=== PATIENT | female | born 1975 | race Caucasian/White ===

== ENCOUNTER → 2018-07-22 | Outpatient (CLI) | payer OTHER ==
--- NOTE | 2018-07-22 10:03 | US ---
EXAMINATION TYPE: US pelvis complete transvag DATE OF EXAM: 07/22/2018 COMPARISON: NONE CLINICAL HISTORY: R10.2 Pelvic and perineal pain, N92.3 Ovulation. Patient bleeding and spotting 4 days a week TECHNIQUE: Transvaginal (TV) and Transabdominal (TA) . Transabdominal sonographic images of the pel vis were acquired. Transvaginal sonographic images were medically necessary to better assess the fol lowing anatomy: endometrium Date of LMP: Patient bleeding and spotting 4 days a week EXAM MEASUREMENTS: Uterus: 9.0 x 4.0 x 4.8cm Endometrial Stripe: 0.4 cm Right Ovary: 2.2 x 1.8 x 1.8 cm Left Ovary: 2.2 x 2.0 x 2.1 cm 1. Uterus: Anteverted, heterogeneous, fibroid measuring 1.6 x 1.2 x 1.7cm 2. Endometrium: anechoic area with some internal echoes low measuring 1.4 x 0.8 x 0.8cm, 3. Right Ovary: wnl 4. Left Ovary: dominant follicle noted Spectral, color and waveform doppler imaging shows good arterial and venous flow within the ovaries ; there is no evidence for ovarian torsion. 5. Bilateral Adnexa: wnl 6. Posterior cul-de-sac: wnl IMPRESSION: 1. Uterine tissue is heterogeneous with a 1.7 cm hypoechoic nodule most typical of a fibroid. This ap pears slightly increased in size from the prior exam where it measured 1.4 cm.
== END | disposition home or self-care (01) ==
LOC: RADUSWWP 08:42
PROVIDERS: ATTEND Obstetrics & Gynecology
DX: N85.8 Other specified noninflammatory disorders of uterus (principal)
CPT/HCPCS: 76830; 76856

== ENCOUNTER → 2018-08-29 | Outpatient (CLI) | payer OTHER | END | disposition home or self-care (01) | LOC: LABWHC1 11:25 | PROVIDERS: ATTEND Obstetrics & Gynecology | DX: N92.1 Excessive and frequent menstruation with irregular cycle (principal); Z13.29 Encounter for screening for other suspected endocrine disorder | CPT/HCPCS: 36415; 82670; 83001; 83002; 84439; 84443 ==

== ENCOUNTER 2018-12-01 06:20 | Emergency (ER) | payer OTHER ==
[2018-12-01 06:27] VITALS: TEMP 98.1
[2018-12-01] MEDS ORDERED: SODIUM CHLORIDE 0.9% 500 ML 500 ML IV ONE (06:46)
[2018-12-01] MEDS ORDERED: diphenhydrAMINE 50 MG/ML 1 ML VIAL IVP STA (06:47)
[2018-12-01] MEDS ORDERED: methylPREDNISolone SOD SUCCI 125 MG/2 ML VIAL IV STA (06:47)
[2018-12-01] MEDS ORDERED: FAMOTIDINE 20 MG/2 ML VIAL IV STA (08:08)
--- NOTE | 2018-12-01 09:05 | ED ---
Allergic Reaction HPI - General Chief complaint: Allergic Reaction Stated complaint: hives Time Seen by Provider: 12/01/18 06:44 Source: patient, family Mode of arrival: ambulatory Limitations: no limitations - History of Present Illness Initial Comments: 43-year-old female presents emergency department for evaluation of rash x 1 day. Patient states she believes she has hives. Patient states yesterday approximately 2 PM she felt a slight itchy sensation on her left leg. Patient states that it began to spread throughout the day and by 8 PM it was from head to toe. Patient states she does take Lamictal has been on the prescription for 2 years. Patient denies taking any other medications-when necessary Xanax. Patient denies any specific foods that could've caused the rash but states that she did eat [place] fries at the fair about hour prior to the onset. Patient denies any swelling of the lip, tongue, the breathing abdominal pain and vomi ting nausea diarrhea fever and sick contacts recent travel. Patient states the rash is itchy she denies any pain blistering. Remaining review of system negative. Upon arrival patient appears well no signs of acute distress. 25mg of bendaryl was taking an hour prior to arrival. - Related Data Home Medications Medication Instructions Recorded Confirmed ALPRAZolam [Xanax XR] 1 mg PO DAILY PRN 12/01/18 12/01/18 Cholecalciferol [Vitamin D3 (25 1,000 unit PO DAILY 12/01/18 12/01/18 Mcg = 1000 Iu)] Ibuprofen [Motrin] 800 mg PO Q6HR PRN 12/01/18 12/01/18 lamoTRIgine [LaMICtal] 100 mg PO HS 12/01/18 12/01/18 Previous Rx's Medication Instructions Recorded hydrOXYzine HCL [Atarax] 10 mg PO TID PRN 5 Days #15 tab 12/01/18 predniSONE 20 mg PO BID 4 Days #8 tab 12/01/18 Allergies Allergy/AdvReac Type Severity Reaction Status Date / Time acetaminophen [From Vicodin] Allergy Rash/Hives Verified 12/01/18 08:07 codeine Allergy Rash/Hives Verified 12/01/18 08:07 hydrocodone [From Vicodin] Allergy Rash/Hives Verified 12/01/18 08:07 morphine Allergy Rash/Hives Verified 12/01/18 08:07 sulfamethoxazole Allergy Rash/Hives Verified 12/01/18 08:07 [From Bactrim] trimethoprim [From Bactrim] Allergy Rash/Hives Verified 12/01/18 08:07 Review of Systems ROS Statement: Those systems with pertinent positive or pertinent negative responses have been documented in the HPI. ROS Other: All systems not noted in ROS Statement are negative. Past Medical History Past Medical History: GERD/Reflux Additional Past Medical History / Comment(s): Hyperthyroidism after first . States resolved after some time and no further problems. States " I think that I am allergic to almost all kinds of pain medicine". History of Any Multi-Drug Resistant Organisms: None Reported Past Surgical History: Section, Cholecystectomy, Orthopedic Surgery, Tubal Ligation Additional Past Surgical History / Comment(s): Scope R shoulder, colonoscopy, ear tubes. Past Anesthesia/Blood Transfusion Reactions: Motion Sickness Past Psychological History: Anxiety, Depression Smoking Status: Never smoker Past Alcohol Use History: None Reported Past Drug Use History: None Reported - Past Family History Mother Family Medical History: No Reported History General Exam - General Exam Comments Initial Comments: General: The patient is awake and alert, in no distress, and does not appear acutely ill. Eye: Pupils are equal, round and reactive to light, extra-ocular movements are intact. No nystagmus. There is normal conjunctiva bilaterally. No signs of icterus. Ears, nose, mouth and throat: There are moist mucous membranes and no oral lesions. Neck: The neck is supple, there is no tenderness or JVD. Cardiovascular: There is a regular rate and rhythm. No murmur, rub or gallop is appreciated. Respiratory: Lungs are clear to auscultation, respirations are non-labored, breath sounds are equal. No wheezes, stridor, rales, or rhonchi. Gastrointestinal: Soft, non-distended, non-tender abdomen without masses or organomegaly noted. There is no rebound or guarding present. Musculoskeletal: Slightly raised red circular, some confluent lesions on hairline, neck, back, abdomen, leg b/l, small amount of arms. No vesicular lesions no blistering. Normal ROM, no tenderness. Strength 5/5. Sensation intact. Radial pulses equal bilaterally 2+. Neurological: A&O x 3. CN II-XII intact grossly, There are no obvious motor or sensory deficits. Coordination appears grossly intact. Speech is normal. Skin: Skin is warm and dry and no rashes or lesions are noted. Psychiatric: Cooperative, appropriate mood & affect, normal judgment. Limitations: no limitations Course Vital Signs 12/01/18 12/01/18 06:22 09:55 Temperature 98.1 F Pulse Rate 104 H 80 Respiratory 20 16 Rate Blood Pressure 127/63 120/71 O2 Sat by Pulse 100 100 Oximetry Medical Decision Making - Medical Decision Making 43-year-old female presenting for possible hives. Patient is on Lamictal has been for the past 2 years. Patient does have urticaria on examination. With concern of frequency of adverse reactions associated with Lamictal patient is instructed to discontinue meidcation, it this is currently treating her bipolar disorder and has not used for epilepsy. Patient was given solumedrol 125IVP, Pepcid and 25 mg of Benadryl emergency department. Patient has resolution of itching however the urticaria remains. I discussed the case attending provider Dr. Grimes at this time we do feel patient is stable for discharge as she has not worsened emergency department, with a prescription for Atarax and prednisone. She is to consult her psychiatrist in regards to her medications. She was given very strict return parameters which she verbalizes understanding. Patient is discharged appearing well Disposition Clinical Impression: Urticaria Disposition: HOME SELF-CARE Condition: Good Instructions (If sedation given, give patient instructions): Anaphylaxis (ED), Adverse Drug Reaction (ED) Additional Instructions: Please use medication as discussed. STOP LAMICTAL. Please follow-up with family doctor tomorrow, call psychiatrist tomorrow to discuss medications. Please return to emergency room if the symptoms increase or worsen or for any other concerns, blistering, pain, increasing rash/spread, mouth involvement, lip/tongue swelling, fever, abdominal pain/vomiting/diarrhea. Prescriptions: hydrOXYzine HCL [Atarax] 10 mg PO TID PRN 5 Days #15 tab PRN Reason: Itching predniSONE 20 mg PO BID 4 Days #8 tab Is patient prescribed a controlled substance at d/c from ED?: No Referrals: Cleveland Sagastume MD [Primary Care Provider] - 1-2 days Aniket De Luna MD [STAFF PHYSICIAN] - 1-2 days Time of Disposition: 09:04
[2018-12-01 09:56] VITALS: BP 120/71; PULSE 80; RESP 16
== END 2018-12-01 09:55 | disposition home or self-care (01) ==
LOC: EC 06:20
DX: L50.0 Allergic urticaria (principal); F32.9 Major depressive disorder, single episode, unspecified; Z88.2 Allergy status to sulfonamides; Z88.5 Allergy status to narcotic agent; Z88.6 Allergy status to analgesic agent; Z79.899 Other long term (current) drug therapy
CPT/HCPCS: 99283; 96374; 96375 ×2; 96361; J1200; J2930

== ENCOUNTER → 2018-12-19 | Outpatient (CLI) | payer OTHER ==
[2018-12-19 10:53] LABS: Basophils % (A) 1 %; Eosinophils # (A) 0.1 k/uL (0-0.7); Eosinophils % (A) 2 %; HGB 13.2 gm/dL (11.4-16.0); Lymphocytes # (A) 1.3 k/uL (1.0-4.8); Lymphocytes % (A) 28 %; MCH 31.1 pg (25.0-35.0); MCHC 32.9 g/dL (31.0-37.0); MCV 94.8 fL (80.0-100.0); Mean Platelet Volume 5.7; Monocytes # (A) 0.3 k/uL (0-1.0); Monocytes % (A) 6 %; Neutrophils # (A) 2.9 k/uL (1.3-7.7); Neutrophils % (A) 62 %; Platelet Count 297 k/uL (150-450); RBC 4.22 m/uL (3.80-5.40); RDW 13.1 % (11.5-15.5); WBC 4.7 k/uL (3.8-10.6)
[2018-12-19 11:09] LABS: African American GFR (CKD) >90 (>60 ml/min/1.73 sqM); Anion Gap 8 mmol/L; Blood Urea Nitrogen 7 mg/dL (7-17); Calcium 9.4 mg/dL (8.4-10.2); Carbon Dioxide 29 mmol/L (22-30); Chloride 106 mmol/L (98-107); Glucose 87 mg/dL (74-99); Potassium 4.6 mmol/L (3.5-5.1); Sodium 143 mmol/L (137-145)
== END | disposition home or self-care (01) ==
LOC: LABPAT 09:53
PROVIDERS: ATTEND Obstetrics & Gynecology
DX: Z01.812 Encounter for preprocedural laboratory examination (principal)
CPT/HCPCS: 80048; 85025

== ENCOUNTER 2018-12-26 07:30 | Inpatient (IN) | payer OTHER ==
[2019-01-03 11:38] VITALS: BMI 38.9
--- NOTE | 2019-01-08 18:00 | P.HPOB ---
History of Present Illness H&P Date: 01/08/19 Chief Complaint: Intermenstrual bleeding, dysmenorrhea This is a 43-year-old female 3 para 2, who presents for total abdominal hysterectomy with bilateral salpingectomy, possible bilateral oophorectomy, due to dysmenorrhea and intermenstrual bleeding. She complains of intermenstrual bleeding for over 6 months and painful menses for about the same time. She also complains of cramping and hot flashes. Her pelvic ultrasound showed a uterus measuring 9 x 4 x 4.8 cm with an anterior fibroid measuring 1.6 x 1.7 cm. The endometrium did have an anechoic area measuring 1.4 cm. Ovaries were normal. During her previous section she did have some omental adhesions noted. She would like definitive surgical treatment and has declined oral contraceptives. Hormone levels did not show menopause range. Obstetrical history: 3 para 2. History of 2 deliveries and 1 miscarriage. Gynecologic history: No history of sexual transmitted diseases. She has had a tubal ligation. Social history: She is . She works as a extended day teacher. Review of Systems Constitutional: Reports sweats, Denies chills, Denies fever Eyes: denies blurred vision, denies pain Ears, nose, mouth and throat: Denies headache, Denies sore throat Cardiovascular: Denies chest pain, Denies shortness of breath Respiratory: Denies cough Gastrointestinal: Denies abdominal pain, Denies diarrhea, Denies nausea, Denies vomiting Genitourinary: Reports pelvic pain Menstruation: Reports cycle variable, Reports menses variable, Reports period heavy Musculoskeletal: Reports low back pain Integumentary: Denies pruritus, Denies rash Neurological: Denies numbness, Denies weakness Psychiatric: Reports anxiety, Reports depression Past Medical History Past Medical History: GERD/Reflux Additional Past Medical History / Comment(s): Hyperthyroidism after first . States resolved after some time and no further problems. States " I think that I am allergic to almost all kinds of pain medicine". History of Any Multi-Drug Resistant Organisms: None Reported Past Surgical History: Section, Cholecystectomy, Ear Surgery, Orthopedic Surgery, Tubal Ligation Additional Past Surgical History / Comment(s): Section X2, right shoulder arthroscopy, colonoscopy, ear tubes. Past Anesthesia/Blood Transfusion Reactions: Previous Problems w/ Anesthesia, Motion Sickness Additional Past Anesthesia/Blood Transfusion Reaction / Comment(s): States "had a reaction (Hives for one week) after last surgery from whatever anesthesia they gave me." Past Psychological History: Anxiety, Depression Smoking Status: Never smoker Past Alcohol Use History: Rare Past Drug Use History: None Reported - Past Family History Mother Family Medical History: No Reported History Medications and Allergies Home Medications Medication Instructions Recorded Confirmed Type ALPRAZolam [Xanax XR] 1 mg PO DAILY PRN 12/01/18 01/03/19 History Cholecalciferol [Vitamin D3 (25 1,000 unit PO DAILY 12/01/18 01/03/19 History Mcg = 1000 Iu)] lamoTRIgine [LaMICtal] 50 mg PO BID 12/01/18 01/03/19 History Allergies Allergy/AdvReac Type Severity Reaction Status Date / Time acetaminophen [From Vicodin] Allergy Rash/Hives Verified 01/03/19 11:17 codeine Allergy Rash/Hives Verified 01/03/19 11:17 hydrocodone [From Vicodin] Allergy Rash/Hives Verified 01/03/19 11:17 morphine Allergy Rash/Hives Verified 01/03/19 11:17 sulfamethoxazole Allergy Rash/Hives Verified 01/03/19 11:17 [From Bactrim] trimethoprim [From Bactrim] Allergy Rash/Hives Verified 01/03/19 11:17 Anesthesia Allergy Rash/Hives Uncoded 01/03/19 11:38 Exam Osteopathic Statement: *. No significant issues noted on an osteopathic structural exam other than those noted in the History and Physical/Consult. HEENT: Within normal limits Heart: Regular rate and rhythm Lungs: Clear to auscultation bilaterally Abdomen: Soft, nontender Pelvic exam: Uterus is anteverted, nontender, with no adnexal masses or tenderness palpated. Extremities: Negative Homans Assessment and Plan (1) Intermenstrual bleeding Status: Acute Code(s): N92.3 - OVULATION BLEEDING SNOMED Code(s): 221509172 (2) Dysmenorrhea Status: Acute Code(s): N94.6 - DYSMENORRHEA, UNSPECIFIED SNOMED Code(s): 829180991 Plan: Proceed with total abdominal hysterectomy with bilateral salpingectomy, possible bilateral oophorectomy. I have discussed the risks, benefits, and alternative therapies for the above- mentioned procedure and for both sedation/anesthesia as well as necessary blood products administration, if indicated, as they pertain to this patient. The patient has indicated her understanding and acceptance of the risks and procedures discussed.
[2019-01-09] MEDS ORDERED: LACTATED RINGERS 1,000 ML IV SCH (05:50)
[2019-01-09] MEDS ORDERED: SCOPOLAMINE 1.5MG/72HR PATCH TRANSDERM ONE (06:40)
[2019-01-09] MEDS ORDERED: DEXAMETHASONE SOD PHOSPHATE 10 MG/ML 1 ML VIAL IV ONE (06:40)
[2019-01-09] MEDS ORDERED: LIDOCAINE 1% 20 ML VIAL (10MG/ML) FOR IV START INTRADERMA ONE (06:40)
[2019-01-09] MEDS: ONDANSETRON 4 MG/2 ML VIAL IVP PRN ×2 (06:45→11:36)
[2019-01-09] MEDS ORDERED: PROPOFOL 10 MG/ML 20 ML VIAL IV ONE (07:30)
[2019-01-09] MEDS ORDERED: SUCCINYLCHOLINE CHLORIDE 100 MG/5 ML SYR IV ONE (07:30)
[2019-01-09] MEDS ORDERED: fentaNYL (PF) 50 MCG/ML 2 ML AMP ONE (07:30)
[2019-01-09] MEDS ORDERED: MIDAZOLAM 2 MG/2 ML VIAL ONE (07:30)
[2019-01-09] MEDS ORDERED: GLYCOPYRROLATE 0.2 MG/ML 2 ML VIAL ONE (07:30)
[2019-01-09] MEDS ORDERED: NEOSTIGMINE 1 MG/ML 10 ML VIAL ONE (07:30)
[2019-01-09] MEDS ORDERED: ROCURONIUM BROMIDE 10 MG/ML 10 ML VIAL IV ONE (07:30)
[2019-01-09] MEDS ORDERED: LIDOCAINE 1% INJ 10MG/ML (20 ML MDV) ONE (07:30)
[2019-01-09] MEDS ORDERED: diphenhydrAMINE 50 MG/ML 1 ML VIAL ONE (07:30)
[2019-01-09] MEDS ORDERED: KETOROLAC 30 MG/ML 1 ML VIAL ONE (07:30)
[2019-01-09] MEDS ORDERED: LACTATED RINGERS 1,000 ML IV ONE (08:55)
--- NOTE | 2019-01-09 09:00 | P.OP ---
Date of Procedure: 01/09/19 Preoperative Diagnosis: Intermenstrual bleeding, dysmenorrhea Postoperative Diagnosis: Same Procedure(s) Performed: Total abdominal hysterectomy with bilateral salpingectomy Anesthesia: ROBERTO Surgeon: Sade Alccoer Fiber Machine Tender #1: Kane Hurley Estimated Blood Loss (ml): 50 Pathology: other (Uterus with cervix and bilateral tubes) Condition: stable Disposition: floor Indications for Procedure: This is a 43-year-old female 3 para 2, who presents for total abdominal hysterectomy with bilateral salpingectomy, possible bilateral oophorectomy, due to dysmenorrhea and intermenstrual bleeding. She complains of intermenstrual bleeding for over 6 months and painful menses for about the same time. She also complains of cramping and hot flashes. Her pelvic ultrasound showed a uterus measuring 9 x 4 x 4.8 cm with an anterior fibroid measuring 1.6 x 1.7 cm. The endometrium did have an anechoic area measuring 1.4 cm. Ovaries were normal. During her previous section she did have some omental adhesions noted. She would like definitive surgical treatment and has declined oral contraceptives. Hormone levels did not show menopause range. Operative Findings: Uterus appears normal size. There is very minimal adhesions from the bladder to the uterus. There is an omental adhesion near the umbilicus. Both ovaries appear normal. Both tubes appeared normal but were adherent. Description of Procedure: The patient is taken to the operating room where she is placed in the dorsal supine position. She is prepped and draped in the normal sterile fashion including Alarcon catheter insertion and vaginal prep. A Pfannenstiel skin incision is made through the previous laparotomy scar with a scalpel. A second knife was used to carry the incision down to the underlying layer of fascia. The fascia was nicked in the midline with a scalpel and then extended laterally bilaterally with Morocho scissors. The superior aspect of the fascial incision was grasped with Mary Kay clamps, elevated off the underlying rectus muscle in the midline and then cut with Morocho scissors. The inferior aspect of the fascial incision was grasped with Mary Kay clamps, elevated off the underlying rectus muscle in the midline and then cut with Morocho scissors. Next the peritoneum was identified and entered sharply with Morocho scissors. It is extended superiorly and in fairly with Metzenbaum scissors with good visualization of underlying structures. There is noted to be an omental adhesion up near the umbilicus area. Next the Yazan retractor is placed in the bladder blade was inserted. The bowels were packed with a 3 yard laparotomy sponge. Next the uterus is brought up incision and the corneal regions are grasped with Arpita clamps on both sides. Next the fallopian tube on the left side is brought up to the incision and the mesosalpinx is clamped with a Zach clamp. This is cut with Morocho scissors and then sutured with 0 Vicryl suture in Zach transfixion stitch. The remaining mesosalpinx is also clamped with a Zach clamp, cut with Morocho scissors, and sutured with 0 Vicryl suture in Zach transfixion stitches. Next the uterine ovarian ligament is clamped with a Zach clamp, cut with Morocho scissors, and then sutured with 0 Vicryl suture in Zach transfixion stitch. The same procedure is carried out on the right side. The uterine arteries are then clamped with Zach clamp on either side. The vesicouterine peritoneum was sharply dissected away from the bladder with Metzenbaum scissors and pushed inferiorly. The uterine arteries are then cut with Morocho scissors, and sutured with 0 Vicryl suture in Zach transfixion stitches. Next the cardinal ligaments were clamped on either side with Zach clamp, cut with Morocho scissors, and sutured with 0 Vicryl suture in Zach transfixion stitches. The uterosacral ligaments are clamped on either side with Zach clamps, cut with Morocho scissors, and sutured with 0 Vicryl suture in Zach transfixion stitches on either side. The edges of the vaginal cuff were clamped on either side with a Zach clamp, cut with Morocho scissors, and sutured with 0 Vicryl suture in Zach transfixion stitches and held on either side. The vaginal mucosa was then cut just below the level of the cervix and the specimen is removed from the field. The edges of the vaginal cuff were held with Mary Kay clamps. Next the previously held corners of each side of the vaginal cuff were then whipstitched along the connective tissue on either side and brought through the corner of the cuff and tied. Next the vaginal cuff was sutured with 0 Vicryl suture in a running locked fashion. Hemostasis was noted. Copious irrigation is carried out with warm saline. Excellent hemostasis is noted. All sponges are removed from the abdomen. Excellent hemostasis is noted. The peritoneum is then closed with 0 Vicryl suture in a running fashion. The muscle was then reapproximated with 0 Vicryl suture in interrupted fashion. The fascia layer is then closed with 0 PDS suture in a running fashion with the knots buried on either side and in the midline. Next the subcutaneous tissues closed with 2-0 Vicryl suture in a running fashion. The skin is closed with valerie. All sponge and needle counts are correct and the patient is taken to recovery room in stable condition.
[2019-01-09] MEDS: fentaNYL (PF) 50 MCG/ML 2 ML AMP IV ONE ×2 (09:32→09:45)
[2019-01-09] MEDS ORDERED: SIMETHICONE 80 MG CHEWABLE PO PRN (09:53)
[2019-01-09] MEDS ORDERED: ALPRAZolam 0.25 MG TAB PO PRN (09:53)
[2019-01-09] MEDS ORDERED: ZOLPIDEM 5 MG TAB PO PRN (09:53)
[2019-01-09] MEDS ORDERED: ONDANSETRON 4 MG/2 ML VIAL IVP PRN (09:53)
[2019-01-09] MEDS ORDERED: METOCLOPRAMIDE 5 MG/ML 2 ML VIAL IVP PRN (09:53)
[2019-01-09] MEDS: ACETAMINOPHEN TAB 325 MG TAB PO PRN (10:44)
[2019-01-09] MEDS: HYDROmorphone 0.5 MG/0.5 ML SYRINGE IVP PRN ×4 (11:38→12:29)
[2019-01-09] MEDS ORDERED: HYDROmorphone PCA 10 MG/50 ML BAG IV PRN (12:05)
[2019-01-09] MEDS ORDERED: NALOXONE 0.4 MG/ML 1 ML VIAL IV PRN (12:05)
[2019-01-09] MEDS ORDERED: MIDAZOLAM 2 MG/2 ML VIAL IV ONE (13:40)
[2019-01-09] MEDS ORDERED: IV FLUID CONTINUATION 1,000 ML IV ONE (14:18)
--- NOTE | 2019-01-09 14:27 | P.ANPRN ---
Procedure Note - Anesthesia - Nerve Block Performed Bilateral Transversus Abdominis Single Time Out Performed: Yes Date of Procedure: 01/09/19 Procedure Start Time: 13:39 Procedure Stop Time: 13:51 Location of Patient Procedure: PACU Indication: Acute Post-Operative Pain, Requested by Surgeon Specifically requested for management of pain by DrAlthea: Sade Alcocer Sedation Type: Sedate with meaningful contact maintained Preparation: Sterile Prep Position: Supine Catheter: None Needle Types: Pajunk Needle Gauge: 20 Ultrasound used to visualize needle placement: Yes Ultrasound used to observe medication spread: Yes Injectate: Other (see comment) (Ropivacaine 0.25%/lidocaine 1% 30 mL per side) Adjunct: Epinephrine (see comment for dilution ratio) (1:200,000) Blood Aspirated: No Pain Paresthesia on Injection Noted: No Resistance on Injection: Normal Image Stored and Saved: Yes Events: Uneventful and Well Tolerated
[2019-01-09] MEDS ORDERED: diphenhydrAMINE 50 MG/ML 1 ML VIAL IVP ONE ×2 (14:30→14:46)
[2019-01-09] MEDS: CHOLECALCIFEROL 1,000 UNIT TAB PO SCH (15:06)
[2019-01-09] MEDS: lamoTRIgine 25 MG TAB PO SCH (15:06)
[2019-01-09] MEDS: SENNOSIDES-DOCUSATE SODIUM 1 EACH TAB PO SCH ×2 (15:35→21:50)
[2019-01-09] MEDS: LACTATED RINGERS 1,000 ML IV SCH ×2 (15:36→15:58)
[2019-01-09] MEDS: KETOROLAC 30 MG/ML 1 ML VIAL IVP PRN ×2 (15:55→22:19)
[2019-01-09] MEDS: diphenhydrAMINE 50 MG/ML 1 ML VIAL IVP PRN (20:15)
[2019-01-10] MEDS: KETOROLAC 30 MG/ML 1 ML VIAL IVP PRN (04:42)
[2019-01-10] MEDS: LACTATED RINGERS 1,000 ML IV SCH ×2 (06:11→16:32)
[2019-01-10 06:26] LABS: Basophils % (A) 0 %; Eosinophils # (A) 0.1 k/uL (0-0.7); Eosinophils % (A) 2 %; HCT 39.7 % (34.0-46.0); HGB 13.3 gm/dL (11.4-16.0); Lymphocytes # (A) 1.2 k/uL (1.0-4.8); Lymphocytes % (A) 15 %; MCH 31.1 pg (25.0-35.0); MCHC 33.5 g/dL (31.0-37.0); MCV 92.9 fL (80.0-100.0); Mean Platelet Volume 5.9; Monocytes # (A) 0.3 k/uL (0-1.0); Monocytes % (A) 4 %; Neutrophils # (A) 6.2 k/uL (1.3-7.7); Neutrophils % (A) 77 %; Platelet Count 367 k/uL (150-450); RBC 4.27 m/uL (3.80-5.40); RDW 13.2 % (11.5-15.5)
--- NOTE | 2019-01-10 07:49 | P.PN ---
Subjective Progress Note Date: 01/10/19 Principal diagnosis: Status post SHILO with bilateral salpingectomy postoperative day #1 Patient is doing much better today than yesterday. Her pain is better controlled. She is used her Dilaudid DROP HAMMER SETTER UP only twice since the nerve block by anesthesia yesterday. She is noticing some redness on her skin but no itching. She denies any nausea or vomiting. She has not passed flatus or bowel movement yet. Her catheter was just removed this morning and she has not been able to urinate yet. Objective - Vital Signs Vital signs: Vital Signs Temp 98.9 F 01/10/19 04:00 Pulse 75 01/10/19 04:00 Resp 15 01/10/19 04:00 BP 125/68 01/10/19 04:00 Pulse Ox 95 01/10/19 04:00 Intake & Output 01/09/19 01/10/19 01/10/19 18:59 06:59 18:59 Intake Total 1350 Output Total 800 2600 Balance 550 -2600 Intake: IV 1350 Output: Urine 750 2600 Uretheral (Alarcon) 1700 Estimated Blood Loss 50 - Constitutional General appearance: Present: no acute distress - Gastrointestinal Gastrointestinal Comment(s): Incision is clean dry and intact with valerie in place. General gastrointestinal: Present: normal bowel sounds, soft. Absent: distended - Musculoskeletal Musculoskeletal Comment(s): Negative Homans bilaterally - Labs CBC & Chem 7: 01/10/19 05:56 Assessment and Plan Assessment: Status post total abdominal hysterectomy with bilateral salpingectomy postoperative day #1 (1) Intermenstrual bleeding Current Visit: No Status: Acute Code(s): N92.3 - OVULATION BLEEDING SNOMED Code(s): 358215001 (2) Dysmenorrhea Current Visit: No Status: Acute Code(s): N94.6 - DYSMENORRHEA, UNSPECIFIED SNOMED Code(s): 714396570 Plan: Continue with postoperative care today. Once she is able to pass flatus and 10 be advanced to regular diet, will switch to oral pain medication using ibuprofen and Tylenol. Patient is encouraged to continue ambulating.
[2019-01-10] MEDS: CHOLECALCIFEROL 1,000 UNIT TAB PO SCH (08:47)
[2019-01-10] MEDS: ACETAMINOPHEN TAB 325 MG TAB PO PRN ×2 (08:48→16:05)
[2019-01-10] MEDS: SENNOSIDES-DOCUSATE SODIUM 1 EACH TAB PO SCH (08:49)
[2019-01-10] MEDS: diphenhydrAMINE 50 MG/ML 1 ML VIAL IVP PRN (08:50)
[2019-01-10] MEDS: lamoTRIgine 25 MG TAB PO SCH (09:00)
[2019-01-10 10:08] VITALS: RESP 16
[2019-01-10] MEDS: IBUPROFEN 600 MG TAB PO PRN ×2 (11:49→18:43)
[2019-01-11] MEDS: SENNOSIDES-DOCUSATE SODIUM 1 EACH TAB PO SCH ×2 (02:34→08:28)
[2019-01-11] MEDS: LACTATED RINGERS 1,000 ML IV SCH (02:36)
[2019-01-11] MEDS: ACETAMINOPHEN TAB 325 MG TAB PO PRN (04:48)
--- NOTE | 2019-01-11 06:53 | P.DS ---
Providers Date of admission: 01/09/19 06:00 Expected date of discharge: 01/11/19 Attending physician: Sade Alcocer Primary care physician: Cleveland Sagastume - Discharge Diagnosis(es) (1) Intermenstrual bleeding Current Visit: No Status: Acute (2) Dysmenorrhea Current Visit: No Status: Acute Hospital Course: This is a 43-year-old female who underwent a total abdominal hysterectomy with bilateral salpingectomy on 01/09/2019. Postoperatively she did have some issues with pain control due to her multiple narcotic ALLERGIES. She was given a TAP procedure by anesthesia which did help with her pain and she was also given a Dilaudid STORES DESPATCH HAND that also helped with her pain. She did take antiemetics due to her history of nausea with Dilaudid in the past. She is passing flatus but no bowel movement yet. She is urinating without difficulty. Her pain at this point is fairly well controlled with ibuprofen and Tylenol. Vital signs are stable. Abdomen is soft with positive bowel sounds 4. Incision is clean dry and intact with valerie in place. Extremities show negative Homans. Impression is status post SHILO with bilateral salpingectomy postoperative day #2. Plan is to discharge home today. Routine postoperative instructions are given she is advised to follow up in the office in approximately 1 week for a postoperative check. [place] will be removed and Steri-Strips placed prior to discharge. She is advised to call the office at she has any further questions or concerns prior to her postoperative appointment. Procedures: Total abdominal hysterectomy with bilateral salpingectomy on 01/09/2019 Patient Condition at Discharge: Stable Plan - Discharge Summary Discharge Rx Participant: Yes New Discharge Prescriptions: New Ibuprofen [Motrin] 600 mg PO Q6HR PRN #60 tab PRN Reason: Mild Discomfort No Action Cholecalciferol [Vitamin D3 (25 Mcg = 1000 Iu)] 1,000 unit PO DAILY ALPRAZolam [Xanax XR] 1 mg PO DAILY PRN PRN Reason: Anxiety lamoTRIgine [LaMICtal] 50 mg PO DAILY Discharge Medication List ALPRAZolam [Xanax XR] 1 mg PO DAILY PRN 12/01/18 [History] Cholecalciferol [Vitamin D3 (25 Mcg = 1000 Iu)] 1,000 unit PO DAILY 12/01/18 [History] lamoTRIgine [LaMICtal] 50 mg PO DAILY 12/01/18 [History] Ibuprofen [Motrin] 600 mg PO Q6HR PRN #60 tab 01/11/19 [Rx] Follow up Appointment(s)/Referral(s): Sade Alcocer DO [Doctor of Osteopathic Medicine] - 1 Week Patient Instructions/Handouts: *Surgery [facility] - Scopalamine Patch Instructions Activity/Diet/Wound Care/Special Instructions: May shower, but no tub baths. No heavy lifting. No driving for 1 week. No intercourse. Discharge Disposition: HOME SELF-CARE
[2019-01-11] MEDS: lamoTRIgine 25 MG TAB PO SCH (08:28)
[2019-01-11] MEDS: CHOLECALCIFEROL 1,000 UNIT TAB PO SCH (08:29)
[2019-01-11 08:52] VITALS: BP 138/66; PULSE 81; TEMP 98.6
== END 2019-01-11 09:15 | disposition home or self-care (01) | DRG 743 ==
LOC: 2ORMAIN 01-09 06:00 → 4FBP 01-09 09:33
PROVIDERS: ADMIT Obstetrics & Gynecology; ATTEND Obstetrics & Gynecology
PROC: 0UTC0ZZ Resection of Cervix, Open Approach (ICD-10-PCS; 2019-01-09)
PROC: 0UT70ZZ Resection of Bilateral Fallopian Tubes, Open Approach (ICD-10-PCS; 2019-01-09)
PROC: 3E0T3BZ Introduction of Anesthetic Agent into Peripheral Nerves and Plexi, Percutaneous Approach (ICD-10-PCS; 2019-01-09)
PROC: 0UT90ZZ Resection of Uterus, Open Approach (ICD-10-PCS; principal; 2019-01-09 07:30)
DX: N92.3 Ovulation bleeding (principal); D25.9 Leiomyoma of uterus, unspecified; G89.18 Other acute postprocedural pain; N94.6 Dysmenorrhea, unspecified; K66.0 Peritoneal adhesions (postprocedural) (postinfection); N95.1 Menopausal and female climacteric states; K21.9 Gastro-esophageal reflux disease without esophagitis; F32.9 Major depressive disorder, single episode, unspecified; F41.9 Anxiety disorder, unspecified; Z79.899 Other long term (current) drug therapy; Z98.891 History of uterine scar from previous surgery; Z98.51 Tubal ligation status; Z86.39 Personal history of other endocrine, nutritional and metabolic disease; Z90.49 Acquired absence of other specified parts of digestive tract
CPT/HCPCS: 81025; 85025; 86850; 86900; 86901; 88307